=== PATIENT | female | born 1930 | race Caucasian/White ===

== ENCOUNTER → 2016-11-22 | Outpatient (CLI) | payer MEDICARE, OTHER ==
[~2016-11-22] VITALS: Ht 155 cm; Wt 65.9 kg
[2016-11-22] VITALS (9 sets, daily range): BP systolic 123–169; BP diastolic 46–75; PULSE 60–78
[~2016-11-22] MED LIST: ALEVE 220MG220 MG PO; ARICEPT 5MG PO; ASPIRIN E.C. 8181 MG PO; BIO-TN500 MCG PO; BIOTIN1 MG PO; BRILINTA90 MG PO; CEPHALEXIN500 M1 PO; COLACE 100100 MG/CAP PO; COZAAR 25MG25 MG/TAB PO; EPA FISH OIL1000 MG PO; GELATIN650 M2 PO; GLUCOPHAGE500 MG PO; IBU-6600 MG PO; LASIX 20MG TABL20 MG PO; LIPITOR 10MG10 MG PO; LIPITOR20 MG PO; LIPITOR40 MG PO; NATURE'S BLE1000 MCG PO; PRINIVIL2.5 MG PO; STOOL SOFTENER100 M2 PO; TOPROL XL 25MG25 MG PO; TRIPLE FLEX; TYLENOL 325MG325 MG PO; TYLENOL 8 HR PO; TYLENOL ARTHRI650 M1 PO; TYLENOL ARTHRI650 MG PO; ULTRAM 50MG TAB50 MG PO; WOMEN'S GENTLE L5 MG PO; [UNRECOGNIZED DRUG - OTHER]
== END ==
LOC: COL.RAD 11-16 13:30
DX: M54.42 Lumbago with sciatica, left side (principal); M54.41 Lumbago with sciatica, right side; M48.06 Spinal stenosis, lumbar region
CPT/HCPCS: J3301

== ENCOUNTER → 2017-01-10 | Outpatient (CLI) | payer MEDICARE, OTHER | LOC: COL.RAD 10:31 | DX: R09.89 Other specified symptoms and signs involving the circulatory and respiratory systems (principal); I65.23 Occlusion and stenosis of bilateral carotid arteries | CPT/HCPCS: Q9967 ==

== ENCOUNTER 2017-04-27 13:28 | Emergency (ER) | payer MEDICARE, OTHER ==
[~2017-04-27] VITALS: Ht 154.9 cm; Wt 69.5 kg
[2017-04-27 13:31] VITALS: BP 130/61; TEMP 98
[2017-04-27 14:18] LABS: COLLECTION METHOD CLEAN CATCH
[2017-04-27 14:26] LABS: MUCOUS Present /lpf; PH 5 (5-8); SQUAMOUS EPITHELIAL 0-2 /hpf; URINE APPEARANCE Clear; URINE BACTERIA Rare /hpf; URINE BILIRUBIN Negative (NEGATIVE); URINE BLOOD Negative (NEGATIVE); URINE COLOR Yellow; URINE GLUCOSE Negative (NEGATIVE); URINE KETONE Negative (NEGATIVE); URINE LEUKOCYTE ESTERASE Negative (NEGATIVE); URINE PROTEIN(semi-quant) Negative (NEGATIVE); URINE RBC 0-2 /hpf; URINE UROBILINOGEN Negative (NEGATIVE); URINE WBC 0-2 /hpf
[2017-04-27 14:32] LABS: BASO # 0.1 (0.0-0.2); BASO % 0.6 % (0.0-2.0); EOS # 0.1 (0.0-0.7); EOS % 0.8 % (0-4.0); GRAN # 8.8 (1.4-6.5); GRAN % 81.3 % (42.2-75.2); HEMATOCRIT 38.4 % (37.0-47.0); HEMOGLOBIN 13.1 g/dl (12.5-16.0); LYMPH # 1.3 (1.2-3.4); LYMPH % 11.6 % (20.0-51.0); MEAN CELL VOLUME 94 fl (80.0-100.0); MEAN CORPUSCULAR HEMOGLOBIN 32 pg (27.0-31.0); MEAN CORPUSCULAR HGB CONC 34 g/dl (33.0-37.0); MEAN PLATELET VOLUME 9.1 fl (7.4-10.4); MONO # 0.6 (0.1-0.6); MONO % 5.4 % (1.7-9.3); PLATELET COUNT 235 K/mm3 (130-400); WHITE BLOOD COUNT 10.8 K/mm3 (4.8-10.8)
[2017-04-27 14:42] LABS: PROTHROMBIN TIME 11.1 SECONDS (9.7-12.8)
[2017-04-27 14:44] LABS: PARTIAL THROMBOPLASTIN TIME 29.8 SECONDS (26.0-37.0)
[2017-04-27 14:47] LABS: CALCIUM 9.7 mg/dL (8.4-10.2); CREATININE, serum 1.48 mg/dL (0.52-1.25); MAGNESIUM 2.2 mg/dL (1.6-2.3); POTASSIUM 5.1 mmol/L (3.4-5.0)
[2017-04-27 15:56] VITALS: PULSE 65
== END 2017-04-27 15:58 | disposition home or self-care (01) ==
LOC: COL.ER 13:28
PROVIDERS: Physician Assistant
DX: S16.1XXA Strain of muscle, fascia and tendon at neck level, initial encounter (principal); S00.511A Abrasion of lip, initial encounter; S00.31XA Abrasion of nose, initial encounter; I11.0 Hypertensive heart disease with heart failure; I50.9 Heart failure, unspecified; I25.2 Old myocardial infarction; I25.10 Atherosclerotic heart disease of native coronary artery without angina pectoris; Z95.0 Presence of cardiac pacemaker; Z95.5 Presence of coronary angioplasty implant and graft; Z79.82 Long term (current) use of aspirin; W18.30XA Fall on same level, unspecified, initial encounter; Y93.01 Activity, walking, marching and hiking; Y92.009 Unspecified place in unspecified non-institutional (private) residence as the place of occurrence of the external cause